=== PATIENT | male | born 1960 | race Caucasian/White ===

== ENCOUNTER 2019-11-24 14:37 | Inpatient (IN) | payer OTHER ==
[~2019-11-24] VITALS: Ht 180.3 cm; Wt 112.9 kg
[2019-11-24] VITALS (31 sets, daily range): BP systolic 87–121; BP diastolic 48–76
--- NOTE | ~2019-11-24 | EMS ---
[facility] [address] [place] [address] EMS Patient Care Report Name: CHEO AVALOS Room #: 246-P ADM IN M.R.#: [id number] Admission: 11/24/19 Attend Phys: Andre Yoon MD, Discharge: Date of : 62 Report #: [id number] THIS REPORT FOR: //name// Report Transmitted: 11/24/2019 18:36 EMS Care Summary [place], [place]/[facility] Incident [id number] @ 11/24/2019 13:52 Incident Location [address] [place] [address] Patient CANDIDO AVALOS Male, 58 Years 1960 Patient Address [address] [place] [address] Patient History Diabetes,Hypertension (HTN), Patient Allergies Other drug allergy, Patient Medications Lisinopril, Amlodipine, Hydrochlorothiazide (Hctz), Glipizide, Metformin, Chief Complaint CARDIAC ARREST Disposition Transported [place] Dispatch Reason Unconscious/Fainting Transported To [facility] Narrative PT FOUND LYING ON GROUND NEXT TO VAN AT DRIVE THRU. [facility] P37 ON SCENE PERFORMING CPR. AED HAD JUST ADVISED NO SHOCK. CPR CONTINUED AND AED SWITCHED TO MONITOR. ALS PROTOCOL FOLLOWED. BYSTANDERS STATE THAT PT WS SITTING IN DRIVE [facility] [address] [place] [address] EMS Patient Care Report Name: CHEO AVALOS Room #: 246-P ADM IN MJamarcus.#: [id number] Admission: 11/24/19 Attend Phys: Andre Yoon MD, Discharge: Date of : 62 Report #: [id number] THRU FOR A WHILE AND THEY FOUND HIM UNRESPONSIVE WHEN THEY WENT TO CHECK ON HIM. FD REPORTS BYSTANDER CPR WAS BEING PERFORMED ON THEIR ARRIVAL. AFTER PT LOADED INTO AMBULANCE FOR TRANSPORT, PT NOTED TO BE IN A PERFUSING RHYTHM. PT NOTED TO HAVE A STEMI. PT REVERTED TO PEA ENROUTE. NO FURTHER CHANGES ENROUTE. Initial Vitals @14:13P: 146,EtCO2: 57, @14:08P: 141,R: 10, @14:16P: 167,R: 9,EtCO2: 56, @14:06P: 167,R: 12,EtCO2: 38, @14:02P: 223,EtCO2: 34, @14:05P: 49,R: 11,EtCO2: 31, @14:06P: 81,EtCO2: 23, @14:01P: 154, @14:17P: 108,R: 19,EtCO2: 35, @14:08P: 124,R: 11,EtCO2: 27, @14:30P: 31, @14:04P: 149,R: 11,EtCO2: 24, @14:13P: 131,R: 11,EtCO2: 62, @14:11P: 106,R: 9,EtCO2: 34, @14:23P: 115,EtCO2: 64, @14:30R: 12,BP: 142/62,EtCO2: 39, @14:23P: 111,R: 8,EtCO2: 63,SpO2: 80, @14:28P: 53,R: 13,EtCO2: 29, @14:27P: 49,R: 10,EtCO2: 30,SpO2: 38, @14:27P: 56,R: 11, @14:12P: 136,R: 10,EtCO2: 53, @14:34R: 30,EtCO2: 0, @14:06P: 24,EtCO2: 27, @14:28R: 15,EtCO2: 25, @14:03P: 141,R: 9,EtCO2: 32, @14:02P: 194,R: 10, @14:20P: 147,R: 15,EtCO2: 61, @14:21P: 142, @14:14P: 185,R: 11,EtCO2: 64, @14:17P: 87,R: 20,EtCO2: 33, @14:21P: 143,R: 10,BP: 136/74,Pain: 0/10,GCS: 3,EtCO2: 59,SpO2: 80,Revised Trauma: 8,VA Suspected: true @14:00P: 150,R: 0,Pain: 0/10,GCS: 3,Glucose: 136,VA Suspected: true @14:24P: 107,R: 12,EtCO2: 59, @14:31P: 23,R: 12,EtCO2: 28, @14:18P: 45,R: 15,EtCO2: 32, @14:04P: 151,R: 10, @13:58P: 170, @14:28P: 50,R: 12,EtCO2: 26, @13:57P: 155,R: 0,Pain: 0/10,GCS: 3,Revised Trauma: 0,VA Suspected: true [facility] [address] [place] [address] EMS Patient Care Report Name: CHEO AVALOS Room #: 246-P [facility] IN M.R.#: [id number] Admission: 11/24/19 Attend Phys: Andre Yoon MD, Discharge: Date of : 62 Report #: [id number] @14:26P: 67,R: 11,EtCO2: 35,SpO2: 41, @14:19P: 161,R: 9,EtCO2: 56, @14:29P: 33,R: 11,EtCO2: 41, Assessments @13:57MENTAL:Unresponsive,SKIN:Pale,HEENT:Head/Face: No Abnormalities,Neck/Airway: No Abnormalities,LUNG SOUNDS:General: No Abnormalities,ABDOMEN:General: No Abnormalities,PELVIS//GI:EXTREMITIES:PULSE:NEURO: Impression Cardiac arrest Procedures @14:08Response: UnchangedSucceeded@13:57Response: UnchangedSucceeded@14:2312-Lead ECGResponse: UnchangedSucceeded@14:2312-Lead ECGResponse: UnchangedSucceeded@14:06Response: UnchangedSucceeded@13:57ALS AssessmentResponse: UnchangedSucceeded@14:02Epinephrine 1:10 - 1 Milligrams (mg) - Intravenous (IV)Response: Unchanged@13:58iGEL Complications: None,Response: UnchangedSucceeded@13:58Oxygen FlowRate: 15 Device: Bag Valve Mask (BVM) Response: UnchangedSucceeded@14:04Epinephrine 1:10 - 1 Milligrams (mg) - Intravenous (IV)Response: Unchanged@14:13Epinephrine 1:10 - 1 Milligrams (mg) - Intravenous (IV)Response: Unchanged@14:17Epinephrine 1:10 - 1 Milligrams (mg) - Intravenous (IV)Response: Improved@14:28Amiodarone - 150 Milligrams (mg) - Intravenous (IV)Response: Unchanged@14:38Epinephrine 1:10 - 1 Milligrams (mg) - Intravenous (IV)Response: Unchanged@14:01Normal Saline (.9% NaCl) 1500cc (18 ga) Site: Forearm-RightResponse: UnchangedSucceeded Timeline 13:49,Call Received 13:49,Dispatch Notified 13:52,Dispatched 13:54,En Route 13:57,On Scene 13:57,At Patient 13:57,ALS Assessment,Response: UnchangedSucceeded, 13:57,Response: UnchangedSucceeded, 13:57,BP: 0/ M,PULSE: 155,RR: 0 R,SPO2: Ox,ETCO2: ,BG: ,PAIN: 0,GCS: 3, 13:58,iGEL Complications: None,,Response: UnchangedSucceeded, 13:58,Oxygen FlowRate: 15 Device: Bag Valve Mask (BVM) Response: UnchangedSucceeded, 13:58,BP: / M,PULSE: 170,RR: R,SPO2: Ox,ETCO2: ,BG: ,PAIN: ,GCS: , 14:00,BP: / M,PULSE: 150,RR: 0 R,SPO2: Ox,ETCO2: ,B,PAIN: 0,GCS: 3, 14:01,BP: / M,PULSE: 154,RR: R,SPO2: Ox,ETCO2: ,BG: ,PAIN: ,GCS: , 14:01,Normal Saline (.9% NaCl) 1500cc 18 ga Site: Forearm-Right,Response: UnchangedSucceeded, [facility] [address] [place] [address] EMS Patient Care Report Name: CHEO AVALOS #: 246-P [facility] IN Prerna#: [id number] Admission: 11/24/19 Attend Phys: Andre Yoon MD, Discharge: Date of : 62 Report #: [id number] 14:02,Epinephrine 1:10 - 1 Milligrams (mg) - Intravenous (IV),Response: Unchanged 14:02,BP: / M,PULSE: 223,RR: R,SPO2: Ox,ETCO2: 34 ,BG: ,PAIN: ,GCS: , 14:02,BP: / M,PULSE: 194,RR: 10 R,SPO2: Ox,ETCO2: ,BG: ,PAIN: ,GCS: , 14:03,BP: / M,PULSE: 141,RR: 9 R,SPO2: Ox,ETCO2: 32 ,BG: ,PAIN: ,GCS: , 14:04,BP: / M,PULSE: 149,RR: 11 R,SPO2: Ox,ETCO2: 24 ,BG: ,PAIN: ,GCS: , 14:04,Epinephrine 1:10 - 1 Milligrams (mg) - Intravenous (IV),Response: Unchanged 14:04,BP: / M,PULSE: 151,RR: 10 R,SPO2: Ox,ETCO2: ,BG: ,PAIN: ,GCS: , 14:05,BP: / M,PULSE: 49,RR: 11 R,SPO2: Ox,ETCO2: 31 ,BG: ,PAIN: ,GCS: , 14:06,Response: UnchangedSucceeded, 14:06,BP: / M,PULSE: 24,RR: R,SPO2: Ox,ETCO2: 27 ,BG: ,PAIN: ,GCS: , 14:06,BP: / M,PULSE: 81,RR: R,SPO2: Ox,ETCO2: 23 ,BG: ,PAIN: ,GCS: , 14:06,BP: / M,PULSE: 167,RR: 12 R,SPO2: Ox,ETCO2: 38 ,BG: ,PAIN: ,GCS: , 14:08,Response: UnchangedSucceeded, 14:08,BP: / M,PULSE: 124,RR: 11 R,SPO2: Ox,ETCO2: 27 ,BG: ,PAIN: ,GCS: , 14:08,BP: / M,PULSE: 141,RR: 10 R,SPO2: Ox,ETCO2: ,BG: ,PAIN: ,GCS: , 14:11,BP: / M,PULSE: 106,RR: 9 R,SPO2: Ox,ETCO2: 34 ,BG: ,PAIN: ,GCS: , 14:12,BP: / M,PULSE: 136,RR: 10 R,SPO2: Ox,ETCO2: 53 ,BG: ,PAIN: ,GCS: , 14:13,Epinephrine 1:10 - 1 Milligrams (mg) - Intravenous (IV),Response: Unchanged 14:13,BP: / M,PULSE: 146,RR: R,SPO2: Ox,ETCO2: 57 ,BG: ,PAIN: ,GCS: , 14:13,BP: / M,PULSE: 131,RR: 11 R,SPO2: Ox,ETCO2: 62 ,BG: ,PAIN: ,GCS: , 14:14,BP: / M,PULSE: 185,RR: 11 R,SPO2: Ox,ETCO2: 64 ,BG: ,PAIN: ,GCS: , 14:16,BP: / M,PULSE: 167,RR: 9 R,SPO2: Ox,ETCO2: 56 ,BG: ,PAIN: ,GCS: , 14:17,Epinephrine 1:10 - 1 Milligrams (mg) - Intravenous (IV),Response: Improved 14:17,BP: / M,PULSE: 87,RR: 20 R,SPO2: Ox,ETCO2: 33 ,BG: ,PAIN: ,GCS: , 14:17,BP: / M,PULSE: 108,RR: 19 R,SPO2: Ox,ETCO2: 35 ,BG: ,PAIN: ,GCS: , 14:18,BP: / M,PULSE: 45,RR: 15 R,SPO2: Ox,ETCO2: 32 ,BG: ,PAIN: ,GCS: , 14:19,BP: / M,PULSE: 161,RR: 9 R,SPO2: Ox,ETCO2: 56 ,BG: ,PAIN: ,GCS: , 14:20,BP: / M,PULSE: 147,RR: 15 R,SPO2: Ox,ETCO2: 61 ,BG: ,PAIN: ,GCS: , 14:21,BP: 136/74 M,PULSE: 143,RR: 10 R,SPO2: 80 Ox,ETCO2: 59 ,BG: ,PAIN: 0,GCS: 3, 14:21,BP: / M,PULSE: 142,RR: R,SPO2: Ox,ETCO2: ,BG: ,PAIN: ,GCS: , 14:23,12-Lead ECG,Response: UnchangedSucceeded, 14:23,BP: / M,PULSE: 111,RR: 8 R,SPO2: 80 Ox,ETCO2: 63 ,BG: ,PAIN: ,GCS: , 14:23,12-Lead ECG,Response: UnchangedSucceeded, 14:23,BP: / M,PULSE: 115,RR: R,SPO2: Ox,ETCO2: 64 ,BG: ,PAIN: ,GCS: , 14:24,BP: / M,PULSE: 107,RR: 12 R,SPO2: Ox,ETCO2: 59 ,BG: ,PAIN: ,GCS: , 14:25,Depart Scene 14:26,BP: / M,PULSE: 67,RR: 11 R,SPO2: 41 Ox,ETCO2: 35 ,BG: ,PAIN: ,GCS: , 14:27,BP: / M,PULSE: 49,RR: 10 R,SPO2: 38 Ox,ETCO2: 30 ,BG: ,PAIN: ,GCS: , 14:27,BP: /148 M,PULSE: 56,RR: 11 R,SPO2: Ox,ETCO2: ,BG: ,PAIN: ,GCS: , 14:28,Amiodarone - 150 Milligrams (mg) - Intravenous (IV),Response: Unchanged 14:28,BP: / M,PULSE: 50,RR: 12 R,SPO2: Ox,ETCO2: 26 ,BG: ,PAIN: ,GCS: , 14:28,BP: / M,PULSE: ,RR: 15 R,SPO2: Ox,ETCO2: 25 ,BG: ,PAIN: ,GCS: , [address] [address] EMS Patient Care Report Name: CHEO AVALOS Room #: 246-P [facility] IN M.R.#: [id number] Admission: 11/24/19 Attend Phys: Andre Yoon MD, Discharge: Date of : 62 Report #: [id number] 14:28,BP: / M,PULSE: 53,RR: 13 R,SPO2: Ox,ETCO2: 29 ,BG: ,PAIN: ,GCS: , 14:29,BP: / M,PULSE: 33,RR: 11 R,SPO2: Ox,ETCO2: 41 ,BG: ,PAIN: ,GCS: , 14:30,BP: / M,PULSE: 31,RR: R,SPO2: Ox,ETCO2: ,BG: ,PAIN: ,GCS: , 14:30,BP: 142/62 M,PULSE: ,RR: 12 R,SPO2: Ox,ETCO2: 39 ,BG: ,PAIN: ,GCS: , 14:31,At Destination 14:31,BP: / M,PULSE: 23,RR: 12 R,SPO2: Ox,ETCO2: 28 ,BG: ,PAIN: ,GCS: , 14:34,BP: / M,PULSE: ,RR: 30 R,SPO2: Ox,ETCO2: 0 ,BG: ,PAIN: ,GCS: , 14:38,Epinephrine 1:10 - 1 Milligrams (mg) - Intravenous (IV),Response: Unchanged 14:39,Call Closed Disclaimer v1.1 Copyright 2020 [employer] This EMS Care Summary contains data elements from the applicable legal record (which may be displayed differently). It is designed to provide pertinent information for the following purposes: continuity of care, clinical quality, and state data reporting. The complete legal record is available to ED staff and administrators of the receiving hospital in [employer] Patient Tracker. All data is provided "as is."
--- NOTE | ~2019-11-24 | H ---
[facility] [address] [place] [address] HISTORY AND PHYSICAL Name: CHEO AVALOS Room #: 246-P ADM IN M.R.#: [id number] Admission: 11/24/19 Attend Phys: Andre Yoon MD, Discharge: Date of : 62 Report #: [id number] THIS REPORT FOR: cc: FAM - Family physician unknown FAM - Family physician unknown ~ CC: [facility] unknown Andre Yoon DATE OF SERVICE: 11/24/2019 HISTORY OF PRESENT ILLNESS: The patient is a 58-year-old male who apparently was found out in the [employer]'s drive-through line. My limited conversation with paramedics was that he was pulled out and bystander CPR was administered. He was given 5 rounds of epinephrine by paramedics, found to be in PEA in our ER. Two more rounds of epinephrine, calcium and bicarbonate, we were able to get a pulse and a rhythm back. He subsequently then brought emergently to the catheterization lab. It looks like he had prescriptions just filled which were amlodipine, metformin, glimepiride, lisinopril. I have no other ways to get any history here. No family currently here and they taken emergently to the catheterization lab. This revealed a totally occluded LAD with clot formation. Heparin and Integrilin and continued boluses IV and then I gave 1 intracoronary epinephrine as he went asystole again with CPR. Also, another amp of bicarbonate was given. No laboratory work has yet been sent, but we did send some. The wire was placed in the vessel, but no angioplasty and spontaneous flow into the LAD. This may be consistent with a lysed clot. Subsequently, an Integrilin bolus and drip was administered and continued and Levophed is currently at approximately 10 mcg with a systolic pressure around 100. A [place]-Aubrey was left in for monitoring purposes with a PA pressure approximately 50/25. He is intubated. He is not responsive, but he does have continuous CPR since the arrest. Neurologically, there is no way to know. PAST MEDICAL HISTORY: As I can tell from his medicines are hypertension, diabetes and hypercholesterolemia. SOCIAL HISTORY: Unknown. REVIEW OF SYSTEMS: Not obtainable. MEDICATIONS: Are as stated above in the HPI. PHYSICAL EXAMINATION: Currently on physical exam, he is status post catheterization lab with what appears to be a spontaneous lysis of LAD clot. There was 0 flow in the LAD initially. GENERAL: He is not responsive. He is intubated. NECK: There are preserved upstrokes. [facility] [address] [place] [address] HISTORY AND PHYSICAL Name: CHEO AVALOS Room #: 246-P [facility] IN M.R.#: [id number] Admission: 11/24/19 Attend Phys: Andre Yoon MD, Discharge: Date of : 62 Report #: [id number] CARDIOVASCULAR: S1, S2 heart tones, regular rate and rhythm, distant. LUNGS: Clear anteriorly. EXTREMITIES: Reveal trace of edema. ABDOMEN: Distended, slightly. Bowel sounds are noted. NEUROLOGIC: Currently not responsive, but certainly very early in this code blue situation with CPR and initial PEA. ASSESSMENT: 1. Witnessed bystander cardiopulmonary resuscitation for esa-st-eocuirkj cardiac arrest. 2. Pulseless electrical activity with return of sinus rhythm and pressure. 3. Left anterior descending totally occluded with apparent lysis of clot with heparin and Integrilin IV boluses, spontaneous return of flow. 4. Hypotension, requiring Levophed, but improved. 5. Currently, ventilator dependent. He does appear to be assisting this ventilator. RECOMMENDATIONS AND PLAN: We will continue the Levophed, ICU, [place]-Aubrey catheter left in for monitoring purposes. Stat laboratory work, chemistry, CBC, BNP, troponin have all been sent off and pending. IV amiodarone was given here 150 mg for significant ventricular ectopy which is now resolved. The LV function shows anterior apical hypokinesis with EF in the 40-45% range. Echo Doppler will be obtained today, ICU has certainly guarded condition. Cooling protocol would be indicated here and we will obtain Pulmonary consult. Obviously certainly guarded situation here. There is no current family, but we will be waiting for them to have discussion. No further information on this patient's cardiac or medical history. By: 1550 1632 /nt
[2019-11-24 15:42] LABS: HEMOGLOBIN 13.3 gm/dL (14.0-18.0); MCH 31.9 pg (26.0-34.0); MCHC 31.7 g/dL (28.0-37.0); MCV 100.6 fL (80.0-100.0); RBC 4.18 mil/uL (4.50-6.00); RDW 13.3 % (10.5-14.5); WBC 21.6 thou/uL (4.0-11.0)
[2019-11-24 16:05] LABS: CALCIUM 8.6 mg/dL (8.5-10.1); CREATININE 1.7 mg/dL (0.7-1.3); POTASSIUM 3.4 mmol/L (3.5-5.1)
[2019-11-24 16:12] LABS: INR 1.5; PROTIME 14.9 Seconds (9.3-11.4)
[2019-11-24 16:16] LABS: ALBUMIN 2.3 g/dL (3.4-5.0); TOTAL BILIRUBIN 0.5 mg/dL (<0.1-1.0); TOTAL PROTEIN 5.2 g/dL (6.4-8.2)
[2019-11-24] MEDS ORDERED: NORVASC 2.5 MG2.5 M1 PO (16:16)
[2019-11-24] MEDS ORDERED: HYDROCHLOROTHIA25 M2 PO (16:16)
[2019-11-24] MEDS ORDERED: METFORMIN HCL500 MG PO (16:16)
[2019-11-24] MEDS ORDERED: LISINOPRIL2.5 MG PO (16:16)
[2019-11-24 16:17] LABS: APTT 156.4 Seconds (24.5-32.8)
[2019-11-24] MEDS ORDERED: AMARYL4 MG PO (16:17)
[2019-11-24 16:19] LABS: TROPONIN-I 10.73 ng/mL (<0.06)
[2019-11-24 16:34] LABS: FIBRINOGEN 150.3 mg/dL (210-360)
[2019-11-24 17:17] LABS: D-DIMER > 35.20 ug/mLFEU (0.19-0.50)
[2019-11-24 19:10] LABS: HEMATOCRIT 42.2 % (42.0-52.0); HEMOGLOBIN 13.9 gm/dL (14.0-18.0); MCH 31.9 pg (26.0-34.0); MCV 96.8 fL (80.0-100.0); RBC 4.36 mil/uL (4.50-6.00); RDW 13.4 % (10.5-14.5); WBC 25.3 thou/uL (4.0-11.0)
[2019-11-24 19:14] LABS: PLATELET COUNT 188 thou/uL (150-400)
[2019-11-24 19:16] LABS: CALCIUM 7.9 mg/dL (8.5-10.1); CREATININE 1.7 mg/dL (0.7-1.3); POTASSIUM 3.6 mmol/L (3.5-5.1)
[2019-11-24 19:17] LABS: INR 1.4; PROTIME 14.2 Seconds (9.3-11.4)
--- NOTE | 2019-11-24 19:33 | NUR ---
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 Pt was met by Dr. Davis who intubated PT as he had a LMA from the field. Nurse is unable to obtain past medical history as no support person is available and PT is intubated and unresponsive. PT is not following commands and is noted to have a full body twitch. Hypothermia protocol was initiated per Dr. Yoon. Dr. Yoon, Dr. Ko, and Dr. Hightower were consulted and on unit to see PT. FMS was placed due to constant liquid stools. Nurse will continue to monitor. Fall precautions in place.
[2019-11-24 19:46] LABS: ABSOLUTE NEUTROPHILS 22.3 thou/uL (1.4-8.2); METAMYELOCYTES 1 %; PLATELET ESTIMATE NORMAL
[2019-11-24 19:48] LABS: APTT 38.4 Seconds (24.5-32.8)
[2019-11-24 19:57] LABS: TROPONIN-I 51.59 ng/mL (<0.06)
[2019-11-25] VITALS (32 sets, daily range): BP systolic 78–151; BP diastolic 21–116
[2019-11-25 00:40] LABS: HEMATOCRIT 42.2 % (42.0-52.0); HEMOGLOBIN 14.1 gm/dL (14.0-18.0); MCH 32.5 pg (26.0-34.0); MCHC 33.5 g/dL (28.0-37.0); PLATELET COUNT 187 thou/uL (150-400); RBC 4.35 mil/uL (4.50-6.00); RDW 13.2 % (10.5-14.5); WBC 20.8 thou/uL (4.0-11.0)
[2019-11-25 00:55] LABS: CALCIUM 7.7 mg/dL (8.5-10.1); CREATININE 1.8 mg/dL (0.7-1.3); MAGNESIUM 2.6 mg/dL (1.8-2.4); PHOSPHORUS 1.8 mg/dL (2.5-4.9)
[2019-11-25 01:00] LABS: POTASSIUM 2.6 mmol/L (3.5-5.1); TROPONIN-I 131.79 ng/mL (<0.06)
[2019-11-25 01:08] LABS: INR 1.3; PROTIME 12.9 Seconds (9.3-11.4)
[2019-11-25 01:13] LABS: ABSOLUTE NEUTROPHILS 17.5 thou/uL (1.4-8.2); METAMYELOCYTES 4 %
[2019-11-25 04:43] LABS: HEMATOCRIT 42.5 % (42.0-52.0); HEMOGLOBIN 14.1 gm/dL (14.0-18.0); MCHC 33.3 g/dL (28.0-37.0); MCV 96.2 fL (80.0-100.0); RBC 4.41 mil/uL (4.50-6.00); RDW 13.2 % (10.5-14.5); WBC 20.7 thou/uL (4.0-11.0)
[2019-11-25 04:51] LABS: CALCIUM 7.2 mg/dL (8.5-10.1); CREATININE 1.7 mg/dL (0.7-1.3); POTASSIUM 3.4 mmol/L (3.5-5.1)
[2019-11-25 04:58] LABS: CHOLESTEROL 106 mg/dL (<200); HDL CHOLESTEROL 27 mg/dL (>40); LDL CHOLESTEROL 50 mg/dL (<100); TC:HDL 3.9 Ratio (Not establshd); TRIGLYCERIDE 148 mg/dL (<150); VLDL 30 mg/dL (<40)
[2019-11-25 05:01] LABS: ALBUMIN 2.4 g/dL (3.4-5.0); TOTAL BILIRUBIN 0.8 mg/dL (<0.1-1.0); TOTAL PROTEIN 5.3 g/dL (6.4-8.2)
[2019-11-25 05:07] LABS: SERUM ASSESSMENT Clear
[2019-11-25 05:09] LABS: TROPONIN-I 121.83 ng/mL (<0.06)
[2019-11-25 06:24] LABS: HEMOGLOBIN 14.2 gm/dL (14.0-18.0); MCH 32.3 pg (26.0-34.0); MCHC 33.1 g/dL (28.0-37.0); MCV 97.6 fL (80.0-100.0); PLATELET COUNT 198 thou/uL (150-400); WBC 22.3 thou/uL (4.0-11.0)
[2019-11-25 06:32] LABS: CALCIUM 7.8 mg/dL (8.5-10.1); CREATININE 1.8 mg/dL (0.7-1.3); POTASSIUM 3.5 mmol/L (3.5-5.1)
[2019-11-25 06:41] LABS: MAGNESIUM 2.6 mg/dL (1.8-2.4)
[2019-11-25 06:44] LABS: TROPONIN-I 131.5 ng/mL (<0.06)
[2019-11-25 06:57] LABS: APTT 26.1 Seconds (24.5-32.8); INR 1.2; PROTIME 12.3 Seconds (9.3-11.4)
--- NOTE | 2019-11-25 07:22 | NUR ---
ASSUMED PT CARE AT 1900. VSS PT INTUBATED AND SEDATED ON HYPOTHERMIA PRT. MTN NOTIFIED AT 1999 AND ARE FOLLOWING PT'S CARE. PT UNRESPONSIVE, POSTURING, NEGATIVE CORNEA AND GAG REFLEX. PT ON PROPOFOL, INSULIN, INTEGRILLIN, LEVO AND NS. PT REACHED TARGET TEMP AT 1999. BLOOD TINGED ORAL & GASTRIC SECRETIONS. BLOOD TINGED FECAL MATTER. OVER 1000 U/O THIS SHIFT. PT HAD 1600 IN LIQUID STOOL OUTPUT FROM FMS. PT APPEARS STABLE, WILL CONTINUE TO MONITOR PER POC.
[2019-11-25 08:05] LABS: BE(vivo) -8.2 mmol/L (-2 to +3); HCO3 17.6 mmol/L (22.0-26.0); PCO2 37.2 mmHg (35.0-45.0); PO2 99.5 mmHg (80.0-100.0); pH 7.292 (7.360-7.450); sO2 96.9 % (92.0-98.0)
--- NOTE | 2019-11-25 08:15 | NUR ---
Dr Hightower here. Critical ph on ABG 7.[address] Hightower increased PEEP to 7 cm. O2 sat 97-98%. Michael from [facility] here.
--- NOTE | 2019-11-25 09:55 | NUR ---
25 Gm of D50W given IV for blood glucose of 67 (arterial sample) per hypoglycemia protocol. Insulin gtt shut off. Dr Yoon here for rounds and informed. Bedside echocardiogram completed and Dr Yoon looked at pictures on echo machine. Orders received.
[2019-11-25 10:21] LABS: ABSOLUTE NEUTROPHILS 18.3 thou/uL (1.4-8.2); METAMYELOCYTES 1 %
[2019-11-25 10:23] LABS: TOXIC GRANULATION 2+
--- NOTE | 2019-11-25 10:45 | NUR ---
Pt's brother from [place] has arrived via car. Dr Yoon notified and came in to talk with him.
[2019-11-25 12:18] LABS: HEMATOCRIT 41.8 % (42.0-52.0); HEMOGLOBIN 13.9 gm/dL (14.0-18.0); MCH 32.1 pg (26.0-34.0); MCHC 33.3 g/dL (28.0-37.0); MCV 96.3 fL (80.0-100.0); PLATELET COUNT 159 thou/uL (150-400); RBC 4.34 mil/uL (4.50-6.00); RDW 13.2 % (10.5-14.5); WBC 22.6 thou/uL (4.0-11.0)
[2019-11-25 12:29] LABS: CALCIUM 7.8 mg/dL (8.5-10.1); CREATININE 1.6 mg/dL (0.7-1.3); POTASSIUM 3.4 mmol/L (3.5-5.1)
[2019-11-25 12:38] LABS: MAGNESIUM 2.5 mg/dL (1.8-2.4); PHOSPHORUS 3.2 mg/dL (2.5-4.9)
[2019-11-25 12:56] LABS: APTT 29.3 Seconds (24.5-32.8); INR 1.2; PROTIME 12.3 Seconds (9.3-11.4)
[2019-11-25 13:14] LABS: ABSOLUTE NEUTROPHILS 18.3 thou/uL (1.4-8.2); ATYPICAL LYMPHS 2 %
[2019-11-25 13:15] LABS: TOXIC GRANULATION 2+
[2019-11-25 13:37] LABS: TROPONIN-I 86.99 ng/mL (<0.06)
--- NOTE | 2019-11-25 17:36 | NUR ---
Weaning Levophed gtt at tolerated. Levophed at 7 mcg/min at 1650 and Propofol decreased to 20 mcg/kg/min as breathing involved less use of accessory muscles. Pt started coughing now. Suctioned with small amt of rod secretions obtained. Red drainage suctioned from mouth. No eye opening or movement of extremities noted. Propofol increased again to 40 mcg/kg/min. Insulin off at 1625 in anticipation of rewarming per protocol.
--- NOTE | 2019-11-25 19:00 | NUR ---
ASSUMED CARE OF PATIENT AT 1900 11/24. BESIDE REPORT RECEIVED. ACCORDING TO ARTICSUN PATIENT ALREADY BEGAN REWARMING. PATIENT CURRENT TEMPERATURE: 32.9. AT A CLOSER LOOK, IT APPEARS PATIENT BEGAIN REWARMING AT 1800 ON 11/24. HYPOTHERMIA PROTOCOL BEING FOLLOWED. PROPFOL GTT IN PLACE FOR SEDATION. PATIENT WITH NO PURPOSEFUL MOVEMENT, NO REACTION TO PAIN. NO CORNEAL REFLEX. GAG REFLEX IS PRESENT. INSULIN GTT RESTARTED SINCE PATIENT ALREADY REWARMING. TITRATING LEVOPHED GTT TO MAINTAIN MAP: 65-80.
--- NOTE | 2019-11-25 19:00 | NUR ---
Pt remains lightly sedated with Propofol. No purposeful movement observed throughout the day. Sinus rhythm. Levophed was titrated down to 7 mcg/min. Report given to RN assuming care.
[2019-11-26] VITALS (65 sets, daily range): BP systolic 79–155; BP diastolic 39–88
--- NOTE | 2019-11-26 01:09 | NUR ---
PATIENT HAS BEEN REWARMING APPROX FOR 7 HOURS. TEMPERATURE: 34.7. WILL CONTINUE TO SLOWLY REWARM PATIENT ACCORDING TO HYPOTHERMIA PROTOCOL.
--- NOTE | 2019-11-26 02:20 | NUR ---
PATIENT HR INCREASED TO 130'S. DR. SPICER NOTIFIED. ORDERS TO OBTAIN AN EKG AND START AN AMIO BOLUS AND AMIO GTT. EKG READ SINUS TACHYCARDIA. PT BLOOD PRESSURE AT THE TIME OF THE CALL TO DR. SPICER WAS STABLE ON 2MCG/MIN OF LEVOPHED. AROUND 0230 PATIENTS BLOOD PRESSURE DROPPED LOW AT 75/43. LEVOPHED WAS TITRATED UP PER PROTOCOL TO MAINTIAN A MAP OF 65-80. LEVOPHED NOW AT 19MCG/MIN. BLOOD PRESSURE VIA RIGHT FEM ARTERIAL SITE IS 90/53 WITH A MAP OF 66. REFER TO CHARTING ON VITAL SIGNS AND MED TITRATION.
--- NOTE | 2019-11-26 03:03 | NUR ---
NORMOTHERMIA ACHIEVED AT 0303. PATIENTS TEMPERATURE: 37.0. WILL PLAN TO MAINTAIN PATIENT AT NORMOTHERMIA FOR 48 HOURS UNLESS TOLD OTHERWISE.
[2019-11-26 04:33] LABS: HEMATOCRIT 39.2 % (42.0-52.0); HEMOGLOBIN 13.1 gm/dL (14.0-18.0); MCH 32.3 pg (26.0-34.0); MCHC 33.6 g/dL (28.0-37.0); MCV 96.3 fL (80.0-100.0); PLATELET COUNT 128 thou/uL (150-400); RBC 4.07 mil/uL (4.50-6.00); RDW 13.5 % (10.5-14.5); WBC 20.2 thou/uL (4.0-11.0)
[2019-11-26 04:39] LABS: ALBUMIN 2.2 g/dL (3.4-5.0); CALCIUM 7.2 mg/dL (8.5-10.1); CREATININE 1.9 mg/dL (0.7-1.3); TOTAL BILIRUBIN 0.4 mg/dL (<0.1-1.0); TOTAL PROTEIN 5.2 g/dL (6.4-8.2)
[2019-11-26 05:05] LABS: BE(vivo) -5.5 mmol/L (-2 to +3); HCO3 19.2 mmol/L (22.0-26.0); PO2 112.1 mmHg (80.0-100.0); pH 7.356 (7.360-7.450)
[2019-11-26 06:12] LABS: ABSOLUTE NEUTROPHILS 18.6 thou/uL (1.4-8.2); LARGE PLATELETS FEW
--- NOTE | 2019-11-26 09:31 | NUR ---
Vero Guerrero, nurse practioner for Dr Yoon. Orders received to Hold on CT scan due to hemodynamic instability. Levophed is currently at 30 mcg/min. Orders received to start Dopamine.
--- NOTE | 2019-11-26 10:37 | 2DMMODE ---
[facility] [place] [address] [place] [address] 2 D/M-MODE ECHOCARDIOGRAM Name: CHEO AVALOS Room #: 246-P ADM IN M.R.#: [id number] Admission: 11/24/19 Attend Phys: Andre Yoon MD, Discharge: Date of : 62 Report #: [id number] THIS REPORT FOR: cc: FAM - Family physician unknown FAM - Family physician unknown Andre Yoon MD [facility] ~ APPROVED REPORT Study performed: 11/25/2019 09:13:45 EXAM: Comprehensive 2D, Doppler, and color-flow Echocardiogram Patient Location: Bedside Room #: 246 Status: on-call BSA: 2.35 HR: 64 bpm BP: 120/71 mmHg Rhythm: NSR, LBBB Other Information Study Quality: Adequate Technically limited study due to patient on ventilator, inability to position patient. Risk Factors: Cardiac Risk Factors: Hyperlipidemia, HTN, DM Indications CAD S/P Cardiac Arrest 2D Dimensions IVSd: 11.59 (7-11mm) LVOT Diam: 22.00 (18-24mm) LVDd: 40.99 mm PWd: 11.59 (7-11mm) Ascending Ao: 37.15 (22-36mm) LVDs: 32.58 (25-40mm) Aortic Root: 32.51 mm LV Single Plane 4CH: 41.87 % LV Single Plane 2CH: 38.60 % Volumes Left Atrial Volume (Systole) Single Plane 4CH: 38.89 mL Single Plane 2CH: 38.95 mL LA ESV Index: 19.00 mL/m2 [facility] [address] [place] [address] 2 D/M-MODE ECHOCARDIOGRAM Name: CHEO AVALOS Room #: 246-P [facility] IN M.R.#: [id number] Admission: 11/24/19 Attend Phys: Andre Yoon, Discharge: Date of : 62 Report #: [id number] Aortic Valve AoV Peak Steven.: 1.22 m/s AO Peak Gr.: 5.93 mmHg LVOT Max P.16 mmHg LVOT Max V: 0.74 m/s NATALIA Vmax: 2.23 cm2 Pulmonary Valve PV Peak Steven.: 0.85 m/s PV Peak Gr.: 2.91 mmHg Left Ventricle The left ventricle is normal size. Anteroseptal and apical hypokinesis. Inferoapical hypokinesis. Mild concentric left ventricular hypertrophy. Left ventricular systolic function is moderately decreased. LVEF is 40-45%. This study is not technically sufficient to allow evaluation of the LV diastolic function. Right Ventricle Right ventricle is dilated. Right ventricular systolic function is reduced. Atria The left atrium size is normal. The right atrium size is normal. Aortic Valve The Aortic valve is sclerotic. No aortic regurgitation is present. There is no aortic valvular stenosis. Mitral Valve The mitral valve is normal in structure. Trace to mild mitral regurgitation. No evidence of mitral valve stenosis. Tricuspid Valve The tricuspid valve is normal in structure. Trace tricuspid regurgitation. Unable to assess PA pressure. Pulmonic Valve The pulmonary valve is normal in structure. There is no pulmonic valvular regurgitation. Great Vessels The aortic root is normal in size. The ascending aorta is normal in size. IVC is normal in size. Pt. is on a ventilator. [facility] [address] [place] [address] 2 D/M-MODE ECHOCARDIOGRAM Name: CHEO AVALOS Room #: [address] [place] [address] IN M.R.#: [id number] Admission: 11/24/19 Attend Phys: Ander Yoon, Discharge: Date of : 62 Report #: [id number] Pericardium There is no pericardial effusion. <Conclusion> The left ventricle is normal size. Anteroseptal and apical hypokinesis. Inferoapical hypokinesis. Left ventricular systolic function is moderately decreased. LVEF is 40-45%. This study is not technically sufficient to allow evaluation of the LV diastolic function. Right ventricle is dilated. Right ventricular systolic function is reduced. The left atrium size is normal. The Aortic valve is sclerotic. There is no aortic valvular stenosis. Trace to mild mitral regurgitation. The tricuspid valve is normal in structure. The aortic root is normal in size. There is no pericardial effusion. <ELECTRONICALLY SIGNED> By: Andre Yoon MD, FAC 11/26/19 1036 [id number] Andre Yoon MD, [facility] /INF
--- NOTE | 2019-11-26 12:45 | NUR ---
Hemodynamically labile. FlowTrac device set up by Shad Hernandez RN per order from Dr Hightower. Vasopressin gtt added at 0.04 unit/min per order from Dr. Hightower. Propofol resumed after stopping for wake up assessment at noon due to increased blood pressure, reduced C.O. and increased SVV. Artic Sun remains in controlling mode to keep pt temp 36.[address]. Call placed to Dr Ko to notify of neuro status and pupils. Left pupil is 6 mm and nonreactive. Right pupil is 6 mm and minimally reactive/sluggish. No corneal reflex. No response to painful stimulus. Dr Ko aware CT scan on hold per Dr Yoon. No new orders received.
--- NOTE | 2019-11-26 13:43 | NUR ---
Dr Ko here and asked for Propfol to be placed on hold while he examined patient. Left pupil is 6-7 and right pupil 6. No constriction of left pupil and only slight reaction of right. Pt's brother Jaleel and his arrived at same time as Dr Ko and stepped to waiting area while Dr Ko examined patient. Dr Ko went out to waiting area to talk with family after examining patient.
--- NOTE | 2019-11-26 13:59 | NUR ---
Call placed to Dr Yoon's answering service requesting call back. Dr Ko wanting to talk to Dr Yoon. Propofol resumed.
--- NOTE | 2019-11-26 14:35 | NUR ---
Update on status given to Dr Yoon. Order received to proceed with taking pt to radiology for stat CT head.
--- NOTE | 2019-11-26 14:36 | NUR ---
Call placed to [facility] by Shad Hernandez, charge nurse to notify of change in neuro status.
--- NOTE | 2019-11-26 15:15 | NUR ---
Pt prepared for transport to radiology. Placed on portable monitor. RT here to assist with vent. Water returned on [place]. CT notified we are on our way down.
--- NOTE | 2019-11-26 16:25 | NUR ---
Pt returned to ICU from radiology and reconnected to monitors and Artic Sun. Bedbath given and partial linen change done. While in radiology Dr Hightower notified that CT of head in progress. Order from Dr Hightower to do CT angiogram while pt in radiology. Notified Dr Ko as well who does not want CT angiogram at this time. Procedure contraindicated per radiology protocol based on pt's creatinine. Pt returned to ICU following CT head.
--- NOTE | 2019-11-26 17:29 | CATHLAB ---
[facility] [place] [address] INVASIVE PROCEDURE REPORT Name: CHEO AVALOS Room #: 246-P ADM IN M.R.#: [id number] Admission: 11/24/19 Attend Phys: Andre Yoon MD, Discharge: Date of : 62 Report #: [id number] THIS REPORT FOR: cc: FAM - Family physician unknown FAM - Family physician unknown Andre Yoon MD [facility] ~ APPROVED REPORT Study performed: 11/24/2019 14:52:03 Patient Details Patient Status: ED Room #: The patient is a 58 year-old male Event Personnel Andre Yoon Mutual Fund Manager, Lashawn Whitmore RN, Gem Echavarria RN RN, Shavon Mckeon RN RN, Elizabet Almanza RTR, LAVON Scrub, NAJMA Solis scrub, Linda Solis monitor Procedures Performed Art Access - R femoral artery* Palma Access - R femoral vein Right and Left Heart Cath w/Lt. Venogram [id number] Indication Chest pain Procedure Narrative The Right Groin^ was infiltrated with subcutaneous anesthesia. A PINNACLE 6FR Sheath #[id number] sheath was inserted into the . Coronary angiography was performed using coronary diagnostic catheters. The right coronary system was accessed and visualized with a JR4 catheter. The left coronary system was accessed and visualized with a JL4 catheter. The left ventricle was accessed and visualized with a STR PIG catheter. Left ventriculogram was performed in 30 degree projection. ART. AND PALMA. LINE BOTH SUTTURED IN. Intraoperative Conscious Sedation Sedation start time: 1448 Case end Time: 1600 Fluoro Time: 5.57 minutes Dose: DAP 8434.70 cGycm2 999 mGy Contrast Type and Amount: Visipaque 160 ml Hemodynamics [facility] [address] [place] [address] INVASIVE PROCEDURE REPORT Name: CHEO AVALOS Room #: 246-P [facility] IN M.R.#: [id number] Admission: 11/24/19 Attend Phys: Andre Yoon, Discharge: Date of : 62 Report #: [id number] The right atrial mean pressure is 30 mmHg. The right ventricular pressure is 49/20 mmHg. The pulmonary artery pressure is 39/23 mmHg with a mean of 29 mmHg. The mean pulmonary capillary wedge pressure is 28 mmHg. The aortic pressure is 123/71 mmHg with a mean of 93 mmHg. PCI Technique Lesion A LAUNCHER 6FR EBU 4 #[id number] Guide Catheter was used to engage the LAD ostium. BALLOON DILATION A Balloon catheter Sprinter OTW 3.0 x 12 #[id number] was inserted and inflated up to eitan for seconds. NO INFACTION WERE DONE. Conclusion #1. There was successful reperfusion with anticoagulant heparin and Integrilin of an occluded proximal LAD. This was after intracoronary epinephrine and multiple rounds of IV epinephrine and CODE BLUE. Prolonged CPR. Patient had airway support. #2 the left main moderate size giving rise to the LAD and circumflex #3 the circumflex OM is nondominant with mild disease. #4 finally with some visualization of this LAD was mildly diseased. This extended around the apex no evidence of residual clot. #5 the dominant right coronary artery relatively small in caliber had a mid distal eccentric lesion of 70 to 80% filling a relatively small PDA somewhat of a codominant system here. This does not appear to be the culprit lesion and would not intervene at this time in this vessel. #6 successful Lincoln-Aubrey catheter placement for monitoring purposes. #7 prolonged initial CPR with administration of intracoronary epinephrine after IV and further rounds of ACLS protocol had failed. Was able to restore a sinus rhythm levo fed IV was continued and was able to be reduced upon transfer to the ICU Patient not responsive has oral airway will intubate in the ICU per pulmonary and cooling protocol to be initiated. <ELECTRONICALLY SIGNED> By: Andre Yoon MD, FACC 11/26/191726 26 26 Andre Yoon MD, FACC /INF
--- NOTE | 2019-11-26 19:27 | NUR ---
1752: FAMILY DECIDED TO MAKE DNR AND WITHDRAW CARE. TRACY PALMA, APPROACHED FAMILY AND SPOKE WITH THEM IN CONFERENCE ROOM. BROTHER, RENEE, IS AGREEABLE TO DONATION. PROPOFOL TURNED OFF. DR GRAY IS WAITING TO PERFORM BRAIN TESTING. PT CHANGED TO 100% FIO2 AT 1900. RT WILL DO ABG AFTER 30 MIN THEN SWITCH TO NC 100% AND RECHECK ABG.
--- NOTE | 2019-11-26 19:30 | NUR ---
ASSUMED CARE OF PT REMAINS INTUBATED AND NONRESPONSIVE. REMAINS ON LEVOPHED AMIO VASOPRESSIN AND INSULIN GTTS REMAINS A DNR APNEA TEST PERFORMED.
[2019-11-26 19:32] LABS: BE(vivo) -2.6 mmol/L (-2 to +3); HCO3 21.4 mmol/L (22.0-26.0); PCO2 34.9 mmHg (35.0-45.0); PO2 189.3 mmHg (80.0-100.0); pH 7.405 (7.360-7.450); sO2 99.3 % (92.0-98.0)
--- NOTE | 2019-11-26 19:47 | NUR ---
DR GRAY HERE PT DECLARED BRAIN . SEE SHEET FOR FURTHER INFO [facility] HERE.
[2019-11-26 19:50] LABS: BE(vivo) -4.8 mmol/L (-2 to +3); PCO2 60.8 mmHg (35.0-45.0); PO2 85.1 mmHg (80.0-100.0); sO2 94.2 % (92.0-98.0)
[2019-11-26 19:51] LABS: pH 7.214 (7.360-7.450)
--- NOTE | 2019-11-26 20:00 | NUR ---
FABENS TAKING OVER CARE OF PT NOW. REMAINS ON ALL IV DRIPS. SINUS RHYTHM
--- NOTE | 2019-11-27 08:04 | EKG ---
[facility] [place] [address] ELECTROCARDIOGRAM REPORT Name: CHEO AVALOS Room #: 246-P [facility] IN M.R.#: [id number] Admission: 11/24/19 Attend Phys: Andre Yoon MD, Discharge: 11/26/19 Date of : 62 Report #: [id number] THIS REPORT FOR: cc: NAS - Family physician unknown FAM - Family physician unknown Tra Lainez MD [facility] ~ THIS REPORT FOR: //name// [facility] ED Test Date: 2019-11-24 Test Time: 14:47:35 Pat Name: CHEO AVALOS Department: Room: [facility] Gender: M Ordained Minister: : 1960 Requested By: Anirudh Orr Order Number: [id number] MD: Tra Lainez Measurements Intervals [place] Rate: 71 P: 84 IN: 219 QRS: -42 QRSD: 110 T: -31 QT: 373 QTc: 406 Interpretive Statements Sinus rhythm Prolonged IN interval Left axis deviation Borderline ST depression, inferior leads Borderline ST elevation, anterolateral leads No previous ECG available for comparison Electronically Signed On 11-27-2019 8:02:55 CDT by Tra Lainez [email or web address] <ELECTRONICALLY SIGNED> By: Tra Lainez MD, [facility] 11/27/19 0802 1447 1447 Tra Lainez MD, [facility] /EPI
--- NOTE | 2019-11-27 09:39 | EKG ---
[facility] [place] [address] ELECTROCARDIOGRAM REPORT Name: CHEO AVALOS Room #: 246- DIS IN M.R.#: [id number] Admission: 11/24/19 Attend Phys: Andre Yoon MD, Discharge: 11/26/19 Date of : 62 Report #: [id number] THIS REPORT FOR: cc: FAM - Family physician unknown FAM - Family physician unknown Tra Lainez MD [facility] ~ THIS REPORT FOR: //name// [facility] Test Date: 2019-11-25 Test Time: 07:37:30 Pat Name: CHEO AVALOS Department: Room: 246 Gender: M Coroner'S Juror: Fannie ANN : 1960 Requested By: Andre Yoon Order Number: [id number] MD: Tra Lainez Measurements Intervals [place] Rate: 58 P: [place]: QRS: -42 QRSD: 157 T: 90 QT: 476 QTc: 468 Interpretive Statements Possible junctional rhythm Leftward axis Poor R wave progression No previous ECG available for comparison Electronically Signed On 11-27-2019 9:38:30 CDT by Tra Lainez [email or web address] <ELECTRONICALLY SIGNED> By: Tra Lainez MD, FACC 03/16/20 0938 0737 0737 Tra Lainez MD, [facility] /EPI
--- NOTE | 2019-11-27 09:48 | EKG ---
[facility] [place] [address] ELECTROCARDIOGRAM REPORT Name: CHEO AVALOS Room #: 246- DIS IN M.R.#: [id number] Admission: 11/24/19 Attend Phys: Andre Yoon MD, Discharge: 11/26/19 Date of : 62 Report #: [id number] THIS REPORT FOR: cc: FAM - Family physician unknown FAM - Family physician unknown Tra Lainez MD [facility] ~ THIS REPORT FOR: //name// [facility] Test Date: 2019-11-26 Test Time: 02:31:23 Pat Name: CHEO AVALOS Department: Room: [facility] Gender: M Supervisor Dehydrogenation: sv : 1960 Requested By: Andre Yoon Order Number: [id number] MD: Tra Lainez Measurements Intervals [place] Rate: 127 P: 30 MA: 143 QRS: -23 QRSD: 95 T: 89 QT: 321 QTc: 467 Interpretive Statements Sinus tachycardia Borderline left axis deviation Poor R wave progression No previous ECG available for comparison Electronically Signed On 11-27-2019 9:47:28 CDT by Tra Lainez [email or web address] <ELECTRONICALLY SIGNED> By: Tra Lainez MD, FAC 11/27/19 0947 0231 0231 Tra Lainez MD, [facility] /EPI
== END 2019-11-26 19:47 | DRG 208 ==
LOC: ER 14:37 → ICU 16:28
PROVIDERS: Pediatrics; ADMIT Internal Medicine Cardiovascular Disease
PROC: 4A023N7 Measurement of Cardiac Sampling and Pressure, Left Heart, Percutaneous Approach (ICD-10-PCS; principal; 2019-11-24)
PROC: B215YZZ Fluoroscopy of Left Heart using Other Contrast (ICD-10-PCS; principal; 2019-11-24)
PROC: B211YZZ Fluoroscopy of Multiple Coronary Arteries using Other Contrast (ICD-10-PCS; principal; 2019-11-24)
PROC: 0BH17EZ Insertion of Endotracheal Airway into Trachea, Via Natural or Artificial Opening (ICD-10-PCS; principal; 2019-11-24)
PROC: 5A1945Z Respiratory Ventilation, 24-96 Consecutive Hours (ICD-10-PCS; principal; 2019-11-24)
PROC: 5A12012 Performance of Cardiac Output, Single, Manual (ICD-10-PCS; 2019-11-25)
DX: J96.20 Acute and chronic respiratory failure, unspecified whether with hypoxia or hypercapnia (principal); N17.9 Acute kidney failure, unspecified; G93.1 Anoxic brain damage, not elsewhere classified; Z99.11 Dependence on respirator [ventilator] status; I25.10 Atherosclerotic heart disease of native coronary artery without angina pectoris; E78.00 Pure hypercholesterolemia, unspecified; I95.9 Hypotension, unspecified; R74.0 Nonspecific elevation of levels of transaminase and lactic acid dehydrogenase [LDH]; G25.3 Myoclonus; E78.5 Hyperlipidemia, unspecified; N18.9 Chronic kidney disease, unspecified; Z66 Do not resuscitate; E11.22 Type 2 diabetes mellitus with diabetic chronic kidney disease; I12.9 Hypertensive chronic kidney disease with stage 1 through stage 4 chronic kidney disease, or unspecified chronic kidney disease; Z79.899 Other long term (current) drug therapy
CPT/HCPCS: 10078